=== PATIENT | male | born 1980 | race Caucasian/White ===

== ENCOUNTER 2017-04-18 22:55 | Emergency (ER) | payer MEDICAID ==
[~2017-04-18] VITALS: Ht 167.6 cm; Wt 125.0 kg
[~2017-04-18 22:55] MED LIST: BACTRIM DS TAB1 EACH PO; IBUPROFEN 200200 MG PO; LORTAB 5/500 501 TAB PO; NAPROSYN500 M1 PO; PREDNISONE20 M1 PO; SEPTRA DS 800 M1 TA1 PO; ZITHROMAX 250M250 MG PO
[2017-04-18] MEDS ORDERED: TYLENOL 500MG500 MG PO (23:12)
[2017-04-18] MEDS ORDERED: CLEOCIN HC150 MG/CAP PO (23:33)
[2017-04-18] MEDS ORDERED: NORCO 325 MG-51 TAB PO (23:33)
[2017-04-18 23:53] VITALS: BP 146/98
== END 2017-04-18 23:53 | disposition home or self-care (01) ==
LOC: ED 22:55
DX: K08.89 Other specified disorders of teeth and supporting structures (principal); K03.81 Cracked tooth

== ENCOUNTER 2017-12-19 15:53 | Emergency (ER) | payer MEDICAID ==
[~2017-12-19 15:53] MED LIST changes: +CLEOCIN HC150 MG/CAP PO; +NORCO 325 MG-51 TAB PO; +TYLENOL 500MG500 MG PO
[2017-12-19 16:47] LABS: HEMATOCRIT 42.4 % (42.0-52.0); HEMOGLOBIN 14.5 g/dL (13.5-18.0); MEAN CELL VOLUME 87 fl (78-100); MEAN CORPUSCULAR HEMOGLOBIN 30 pg (27-31); MEAN CORPUSCULAR HGB CONC 34 g/dL (33-37); MEAN PLATELET VOLUME 10.1 fl (7.4-10.4); PLATELET COUNT 206 K/mm3 (130-400); RED BLOOD COUNT 4.88 M/mm3 (4.20-5.60); RED CELL DISTRIBUTION WIDTH 13.5 % (11.5-14.5); WHITE BLOOD COUNT 7.2 K/mm3 (4.8-10.8)
[2017-12-19 17:02] LABS: LYMPHOCYTE 35 % (20-51); MONOCYTE 10 % (3-10); NEUTROPHILS 49 % (42-75)
[2017-12-19] MEDS ORDERED: PRILOSEC 20MG20 MG PO (17:36)
[2017-12-19] MEDS ORDERED: PREDNISONE20 M1 PO (17:36)
[2017-12-19 17:48] VITALS: BP 138/76
== END 2017-12-19 17:50 | disposition home or self-care (01) ==
LOC: ED 15:53
PROVIDERS: Family Medicine
DX: K21.9 Gastro-esophageal reflux disease without esophagitis (principal); R06.00 Dyspnea, unspecified; G47.30 Sleep apnea, unspecified; E66.9 Obesity, unspecified; Z87.891 Personal history of nicotine dependence

== ENCOUNTER 2018-12-24 15:07 | Emergency (ER) | payer MEDICAID ==
[~2018-12-24 15:07] MED LIST changes: +CYCLOBENZAPRINE10 M1 PO; +NORCO 325 MG-51 TA1 PO; +PRILOSEC 20MG20 MG PO
[2018-12-24] MEDS ORDERED: CYCLOBENZAPRINE10 M1 PO (16:12)
[2018-12-24 16:19] VITALS: BP 163/100
== END 2018-12-24 16:19 | disposition home or self-care (01) ==
LOC: ED 15:07
DX: M62.838 Other muscle spasm (principal); M25.512 Pain in left shoulder

== ENCOUNTER 2019-03-12 16:16 | Emergency (ER) | payer MEDICAID ==
[2019-03-12] MEDS ORDERED: CLINDAMYCIN 300MG PO (16:47)
[2019-03-12 16:54] VITALS: BP 153/97
== END 2019-03-12 16:53 | disposition home or self-care (01) ==
LOC: ED 16:16
DX: K08.89 Other specified disorders of teeth and supporting structures (principal); I10 Essential (primary) hypertension; Z88.0 Allergy status to penicillin
CPT/HCPCS: J1885

== ENCOUNTER → 2021-09-17 | Outpatient (CLI) | payer MEDICAID ==
[~2021-09-17] MED LIST changes: +CLINDAMYCIN 300MG PO
[2021-09-17 14:46] LABS: BASO # 0.03 K/mm3 (0.02-0.10); EOS # 0.14 K/mm3 (0.04-0.40); EOS % 1.1 % (0.0-4.0); HEMATOCRIT 44.7 % (42.0-52.0); HEMOGLOBIN 15.1 g/dL (13.5-18.0); LYMPH# 3.09 K/mm3 (1.50-4.00); MEAN CELL VOLUME 89 fl (78-100); MEAN CORPUSCULAR HEMOGLOBIN 30 pg (27-31); MEAN CORPUSCULAR HGB CONC 34 g/dL (33-37); MEAN PLATELET VOLUME 9.5 fl (7.4-10.4); MONO # 0.92 K/mm3 (0.20-0.80); NEU # 8.21 K/mm3 (1.40-6.50); PLATELET COUNT 235 K/mm3 (130-400); RED BLOOD COUNT 5.05 M/mm3 (4.20-5.60); RED CELL DISTRIBUTION WIDTH 12.8 % (11.5-14.5); WHITE BLOOD COUNT 12.4 K/mm3 (4.8-10.8)
[2021-09-17 14:53] LABS: URINE APPEARANCE CLEAR; URINE BILIRUBIN NEGATIVE (NEGATIVE); URINE BLOOD NEGATIVE (NEGATIVE); URINE COLOR YELLOW; URINE GLUCOSE NEGATIVE (NEGATIVE); URINE KETONE NEGATIVE (NEGATIVE); URINE LEUKOCYTE ESTERASE NEGATIVE (NEGATIVE); URINE MUCUS PRESENT (NOT PRESENT); URINE NITRATE NEGATIVE (NEGATIVE); URINE PROTEIN(semi-quant) TRACE mg/dL (NEGATIVE); URINE UROBILINOGEN NORMAL (NORMAL); URINE WBC 0-1 /hpf (0-3)
[2021-09-17 14:55] LABS: ALBUMIN 4.5 g/dL (3.5-5.0)
[2021-09-17 14:56] LABS: CALCIUM 9.7 mg/dL (8.3-10.5)
[2021-09-17 14:58] LABS: TOTAL PROTEIN 8.2 g/dL (6.4-8.3)
[2021-09-17 14:59] LABS: TOTAL BILIRUBIN 0.5 mg/dL (0.2-1.2)
== END ==
LOC: LAB 14:26
PROVIDERS: Nurse Practitioner Family
DX: L03.319 Cellulitis of trunk, unspecified (principal)